=== PATIENT | female | born 1960 ===

== ENCOUNTER 2021-09-23 07:54 | Day surgery (SDC) | payer OTHER ==
[~2021-09-23 07:54] MED LIST: CLONAZEPAM0.5 MG PO; CLONAZEPAM2 MG PO; DULOXETINE HCL60 MG PO; GABAPENTIN800 MG PO; LOPID PO; MACROBID 100 M100 MG PO; PRILOSEC OTC20 MG; SULINDAC200 MG PO; SYNTH PO; TIZANIDINE HCL2 M1 PO; ULTRACET PO; ZANTAC300 MG PO
[2021-09-23] MEDS ORDERED: ULTRACET PO (11:02)
[2021-09-23] MEDS ORDERED: MACROBID 100 M100 MG PO (11:03)
== END 2021-09-23 14:10 | disposition home or self-care (01) ==
LOC: CIR.AMB 07:54
PROVIDERS: ATTEND Obstetrics & Gynecology Gynecology
DX: N81.6 Rectocele (principal); N81.5 Vaginal enterocele; E03.9 Hypothyroidism, unspecified; M79.7 Fibromyalgia; F32.A Depression, unspecified; K46.9 Unspecified abdominal hernia without obstruction or gangrene